=== PATIENT | female | born 1960 | race Caucasian/White ===

== ENCOUNTER 2021-03-06 16:31 | Outpatient (CLI) | payer BC, SELFPAY ==
[2021-03-06 17:03] LABS: Basophils % 0.4 %; Eosinophils # 0.1 10^3/uL (0.0-0.8); Eosinophils % 1.4 %; Hematocrit 40.8 % (37.0-47.0); Hemoglobin 13.7 g/dL (11.5-15.3); Lymphocytes % 39.7 %; Mean Corpuscular HGB Conc 33.6 g/dL (30.0-36.0); Mean Corpuscular Hemoglobin 28.4 pg (28.0-34.0); Mean Corpuscular Volume 84.6 fl (81-99); Mean Platelet Volume 10.2 fL (7.4-10.4); Monocytes # 0.5 10^3/uL (0.2-0.9); Neutrophils # 2.45 10^3/uL (1.8-7.7); Neutrophils % 49.1 %; Nucleated Red Blood Cells % 0 %; Platelet Count 228 10^3/cmm (130-400); Red Blood Count 4.82 10^6/uL (4.1-5.3); Red Cell Distribution Width 13.4 % (12.1-15.1)
[2021-03-06 17:44] LABS: Alanine Aminotransferase 18 U/L (0-33); Albumin Level 4.1 g/dL (3.5-5.2); Alkaline Phosphatase 67 IU/L (35-105); Aspartate Amino Transferase 22 U/L (0-32); Blood Urea Nitrogen 12 mg/dL (8-23); Calcium 8.7 mg/dL (8.5-10.5); Carbon Dioxide 25 mmol/L (22-29); Chloride 103 mmol/L (98-107); Chol HDL Ratio 4.72 mg/dL (0.0-4.40); Cholesterol 184 mg/dL (0-200); Globulin 2.8 g/dL (1.3-4.6); Glomerular Filtration Rate 84.8 mL/min (90-130); Glucose 89 mg/dL (65-115); HDL Cholesterol 39 mg/dL (60-100); LDL Cholesterol Calculated 106 mg/dL (50-129); LDL HDL Ratio 2.72 RATIO (0.00-3.22); Osmolality Calculated 283 mOsm/kg (285-295); Sodium 137 mmol/L (136-145); Thyroid Stimulating Hormone 1.74 uIU/mL (0.27-4.20); Total Bilirubin 0.3 mg/dL (0.15-1.2); Total Protein 6.9 g/dL (6.6-8.7); Triglycerides 194 mg/dL (0-150)
[2021-03-06 18:07] LABS: Free T4 Free Thyroxine 0.98 ng/dL (0.82-1.77)
[2021-03-06 21:56] LABS: Estmated Average Glucose 111; Hemoglobin A1C 5.5 % (4.0-6.0)
== END 2021-03-06 16:32 | disposition home or self-care (01) ==
LOC: LAB 16:34
PROVIDERS: Visit Provider Internal Medicine
DX: R73.03 Prediabetes (principal); I10 Essential (primary) hypertension; E78.5 Hyperlipidemia, unspecified; R53.83 Other fatigue
CPT/HCPCS: 80053; 80061; 83036; 84439; 84443; 85025

== ENCOUNTER 2022-11-17 12:25 | Outpatient (CLI) | payer BC, SELFPAY ==
--- NOTE | 2022-11-17 12:36 | XRR_ITS ---
PROCEDURE INFORMATION: Exam: XR Left Foot Exam date and time: 11/17/2022 12:56 PM Age: 62 years old Clinical indication: Injury or trauma; Other: Kicked weight; Blunt trauma; Foot; Left; Injury date: 11/13/22; Additional info: Toe pain left TECHNIQUE: Imaging protocol: Radiologic exam of the left foot. Views: 3 or more views. COMPARISON: No relevant prior studies available. FINDINGS: Bones/joints: Negative for acute bony abnormality. Soft tissues: Unremarkable XR/XR foot LT min 3V* [id number] IMPRESSION: No acute findings.
== END 2022-11-17 12:26 | disposition home or self-care (01) ==
PROVIDERS: PCP Family Medicine; Visit Provider Family Medicine
DX: M79.675 Pain in left toe(s) (principal)
CPT/HCPCS: 73630

== ENCOUNTER 2023-08-10 20:52 | Emergency (ER) | payer BC, SELFPAY ==
[2023-08-10 20:55] VITALS: BP 168/81; PULSE 65; RESP 16; TEMP 36.7; O2SAT 98
--- NOTE | 2023-08-10 21:07 | XRR_ITS ---
PROCEDURE INFORMATION: Exam: XR Chest Exam date and time: 08/10/2023 9:22 PM Age: 63 years old Clinical indication: Chest wall pain; Additional info: Chest pain TECHNIQUE: Imaging protocol: Radiologic exam of the chest. Views: 1 view. COMPARISON: No relevant prior studies available. FINDINGS: Tubes, catheters and devices: Overlying monitor leads noted. Lungs: Unremarkable. No consolidation. Pleural spaces: Unremarkable. No pleural effusion. No pneumothorax. Heart/Mediastinum: Unremarkable. No cardiomegaly. Bones/joints: Visualized osseous structures show no acute abnormality. XR/XR chest 1V portable [id number] IMPRESSION: No acute cardiopulmonary abnormality.
--- NOTE | 2023-08-10 21:07 | ECG_ITS ---
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 Measurements Intervals [place] Rate: 64 P: 53 MN: 205 QRS: 39 QRSD: 92 T: 47 QT: 398 QTc: 411 Interpretive Statements SINUS RHYTHM No previous ECG available for comparison Electronically Signed On 08-13-2023 23:21:08 LAST DIPPER by Gary Fisher M.D. [id number]
--- NOTE | 2023-08-10 21:20 | ED_ITS ---
HPI - Chest Pain 2 General: Chief Complaint: Chest Pain Stated Complaint: cp Time Seen by Provider: 08/10/23 21:15 History of Present Illness: Patient presents to the ER with complaints of epigastric pain and left-sided chest shoulder pain that radiated to her shoulder blade. The started about 845 tonight. Patient has had these pains once before. Patient did vomit once while driving to the ER and said she got cold and clammy prior to arrival. Patient thought her blood sugar may have been low so she ate some tuna cookies and milk but this did not seem to help much. Patient has high blood pressure and no other cardiac issues such as stent CO CHF etc. Patient is on lisinopril for blood pressure. Patient has no known allergies. Review of Systems 2 General: Reports: 10 or more systems reviewed and unremarkable except in HPI and below Physical Exam 2 Const: COMMON NORMALS: no acute distress, average body habitus, patient oriented x3, no limitations, healthy appearing, alert and well nourished HENMT: COMMON NORMALS: normocephalic, atraumatic, hearing grossly normal bilaterally, external ears normal, Normal external nose present, moist oral mucous membranes and oropharynx normal HEAD & SCALP: normocephalic and atraumatic NOSE: Normal external nose present EXTERNAL EAR: Yes external ears normal Neck/C-Spine: COMMON NORMALS: full ROM, no lymphadenopathy, supple, no meningeal signs, no JVD and Thyroid normal THYROID: Thyroid normal Chest: COMMONS NORMALS: normal inspection of the chest and normal palpation of entire chest wall Resp: COMMON NORMALS: normal respiratory effort, No retractions, No use of accessory muscles and clear to auscultation bilaterally AUSCULTATION: clear to auscultation bilaterally Cardio: COMMON NORMALS: no JVD, regular rate, regular rhythm, S1 normal heart sound present, S2 normal heart sound present, No gallops present (Cardio), No clicks present (Cardio), No murmurs present (Cardio) and No rub (Cardio) R ATE: regular rate RHYTHM: regular rhythm HEART SOUNDS: S1 normal heart sound present and S2 normal heart sound present GI: COMMON NORMALS: Normal to inspection, nondistended, normoactive bowel sounds present, Soft to palpation, No hepatosplenomegaly present, no masses and no bruits; negative for non-tender (Tender to palpate over epigastric region which reproduces pain) PALPATION: Yes Soft to palpation and Yes No hepatosplenomegaly present Neuro: COMMON NORMALS: patient oriented x3 SENSORIUM/ORIENTATION: Yes alert MENINGEAL SIGNS: Yes no meningeal signs Course 2 Vital Signs: Vital signs: Vital Signs Temperature 98.0 F 08/10/23 20:55 Pulse Rate 68 08/10/23 23:00 Respiratory Rate 16 08/10/23 23:49 Blood Pressure 112/78 08/10/23 23:49 Pulse Oximetry 98 08/10/23 20:55 Oxygen Delivery Me thod Room Air 08/10/23 20:55 MDM - Chest Pain Medical Decision Making Patient was worked up in a standard chest pain fashion with serial EKGs, serial enzymes, chest x-ray, all of which was essentially benign and did not show acute cardiac cause of her chest pain. Patient declined the GI cocktail because all of her pain went away. Patient be discharged home and should follow-up with her PCP for further evaluation and treatment. Differential Diagnosis Unlikely acute massive pulmonary embolism, acute respiratory failure, acute myocardial infarction, cardiac arrest or sudden cardiac Medical Records I reviewed the patient's medical records. Lab Data I reviewed the patient's lab results. 08/10/23 21:24 08/10/23 21:24 Radiology Impressions Chest X-Ray 08/10/23 21:07 IMPRESSION: No acute cardiopulmonary abnormality. Laboratory Results WBC 5.33 10^3/uL (3.29-11.43) 08/10/23 21: RBC 4.58 10^6/uL (3.85-5.65) 08/10/23: Hgb 13.30 g/dL (11.27-16.99) 08/10/23 21: Hct 38.7 % (36-47) 08/10/23 21: MCV 84.5 fl (85-98) L 08/10/23: MCH 29.0 pg (27-33) 08/10/23: MCHC 34.4 g/dL (30-55) 08/10/23 21: RDW 13.2 % (12.1-15.1) 08/10/23: Plt Count 200 10^3/cmm (157-399) 08/10/23 21: MPV 9.9 fL (7.4-10.4) 08/10/23 21: Neut % (Auto) 45.3 % 08/10/23 21: Lymph % (Auto) 44.5 % 08/10/23 21: Hendry % (Auto) 8.1 % 08/10/23 21: Eos % (Auto) 1.1 % 08/10/23 21: Baso % (Auto) 0.4 % 08/10/23 21: Neut # (Auto) 2.42 10^3/uL (1.8-7.7) 08/10/23 21: Lymph # (Auto) 2.4 10^3/uL (0.8-4.8) 08/10/23: Hendry # (Auto) 0.4 10^3/uL (0.2-0.9) 08/10/23: Eos # (Auto) 0.1 10^3/uL (0.0-0.8) 08/10/23: Baso # (Auto) 0.0 10^3/uL (0.0-0.1) 08/10/23: Nucleated RBC % (auto) 0 % 08/10/23: Nucleated RBCs # 0.0 /100WBC 08/10/23 21: Sodium 139 mmol/L (136-145) 08/10/23 21: Potassium 3.7 mmol/L (3.5-5.1) 08/10/23: Chloride 105 mmol/L (98-107) 08/10/23: Carbon Dioxide 22 mmol/L (22-29) 08/10/23 21:24 Anion Gap 15.7 (5-19) 08/10/23 21:24 BUN 17 mg/dL (8-23) 08/10/23 21: Creatinine 0.7 mg/dL (0.5-0.9) 08/10/23 21: GFR Calculation 84.0 mL/min (90-130) L 08/10/23 21: Glucose 115 mg/dL (65-115) 08/10/23: Calculated Osmolality 290 mOsm/kg (285-295) 08/10/23: Calcium 8.9 mg/dL (8.5-10.5) 08/10/23 21:24 Total Bilirubin 0.3 mg/dL (0.15-1.2) 08/10/23 21:24 AST 50 U/L (0-32) H 08/10/23 21:24 ALT 26 U/L (0-33) 08/10/23 21:24 Alkaline Phosphatase 71 U/L (35-105) 08/10/23 21:24 Troponin T Baseline < 6 ng/L (0-10) 08/10/23 21:24 Troponin T 120 Minute 6.00 ng/L (0-10) 08/10/23 23:06 Delta Troponin T 0.65441 ABS# (0-10) 08/10/23 23:06 Total Protein 6.6 g/dL (6.6-8.7) 08/10/23 21: Albumin 3.9 g/dL (3.5-5.2) 08/10/23 21:24 Globulin 2.7 g/dL (1.3-4.6) 08/10/23 21: Lipase 65 U/L (13-60) H 08/10/23 21:24 All radiology interpretation(s) finalized by discharge EKG Data EKG 1: I personally reviewed and interpreted this EKG as follows: EKG interpretation date: 08/10/23 EKG interpretation time: 20:58 Prior EKG tracings: not available for review Interpretation: EKG showed ventricular rate 64 beats minute, WV interval 205, QRS duration 92, QTc of 407, sinus rhythm with no ST-T wave changes Discharge Plan Discharge Patient Disposition: Home Clinical Impression: Atypical chest pain Condition: Stable Discharge Orders: Discharge ED (Routine); Ordered 08/10/23 Ordered By: Chencho Odonnell Referrals: Simona Kwok DO [Primary Care Provider] - Patient Instructions: Chest Pain - Noncardiac Activity Restrictions/Additional Instructions: Your evaluation in the ER did not provide any cardiac reasoning for your chest pain. It is thought to be noncardiac in nature. Please follow-up with your family practice physician in the next 7 to 10 days for further evaluation and treatment as needed. If your chest pain returns or worsens please feel free to return to the ER. Coding Level of Care Code ED [employer] for Stacie Ulloa
[2023-08-10 21:32] LABS: Basophils % 0.4 %; Eosinophils # 0.1 10^3/uL (0.0-0.8); Eosinophils % 1.1 %; Hematocrit 38.7 % (36-47); Lymphocytes # 2.4 10^3/uL (0.8-4.8); Lymphocytes % 44.5 %; Mean Corpuscular HGB Conc 34.4 g/dL (30-55); Mean Corpuscular Volume 84.5 fl (85-98); Mean Platelet Volume 9.9 fL (7.4-10.4); Monocytes # 0.4 10^3/uL (0.2-0.9); Monocytes % 8.1 %; Neutrophils # 2.42 10^3/uL (1.8-7.7); Neutrophils % 45.3 %; Nucleated Red Blood Cells % 0 %; Platelet Count 200 10^3/cmm (157-399); Red Blood Count 4.58 10^6/uL (3.85-5.65); Red Cell Distribution Width 13.2 % (12.1-15.1); White Blood Count 5.33 10^3/uL (3.29-11.43)
[2023-08-10 22:00] LABS: Troponin(5th) Baseline < 6 ng/L (0-10)
[2023-08-10 22:01] LABS: Alanine Aminotransferase 26 U/L (0-33); Albumin Level 3.9 g/dL (3.5-5.2); Alkaline Phosphatase 71 U/L (35-105); Anion Gap 15.7 (5-19); Aspartate Amino Transferase 50 U/L (0-32); Blood Urea Nitrogen 17 mg/dL (8-23); Calcium 8.9 mg/dL (8.5-10.5); Carbon Dioxide 22 mmol/L (22-29); Chloride 105 mmol/L (98-107); Globulin 2.7 g/dL (1.3-4.6); Glucose 115 mg/dL (65-115); Lipase 65 U/L (13-60); Osmolality Calculated 290 mOsm/kg (285-295); Potassium 3.7 mmol/L (3.5-5.1); Sodium 139 mmol/L (136-145); Total Bilirubin 0.3 mg/dL (0.15-1.2); Total Protein 6.6 g/dL (6.6-8.7)
[2023-08-10 22:03] VITALS: BP 131/77; PULSE 70; RESP 17
[2023-08-10 23:00] VITALS: BP 115/72; PULSE 68; RESP 16
--- NOTE | 2023-08-10 23:07 | ECG_ITS ---
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 Measurements Intervals [place] Rate: 63 P: 31 HI: 126 QRS: 35 QRSD: 107 T: 40 QT: 382 QTc: 394 Interpretive Statements SINUS RHYTHM POSSIBLE INFERIOR MYOCARDIAL INFARCTION , OF INDETERMINATE AGE [30 ms Q WAVE IN II/aVF] Compared to ECG 08/10/2023 20:58:59 Myocardial infarct finding now present Electronically Signed On 08-14-2023 11:00:48 BARTENDER by Gary Fisher M.D. [id number]
[2023-08-10 23:29] LABS: Troponin 5 2HR Delta 0.00001 ABS# (0-10)
[2023-08-10 23:49] VITALS: BP 112/78; RESP 16
== END 2023-08-10 23:51 | disposition home or self-care (01) ==
PROVIDERS: Emergency Provider Emergency Medicine; PCP Family Medicine
DX: R07.89 Other chest pain (principal)
CPT/HCPCS: 71045; 80053; 83690; 84484; 85025; 93005; 99285

== ENCOUNTER 2023-08-26 09:39 | Outpatient (CLI) | payer BC, SELFPAY ==
--- NOTE | 2023-08-26 09:47 | US_ITS ---
WS: [id number] RIGHT UPPER QUADRANT ULTRASOUND HISTORY: ABDOMINAL PAIN COMPARISON: None available. Quality this examination is compromised by body habitus. Liver: 14.3 cm in length. Normal size liver with mild hepatic steatosis throughout. No mass. Portal Vein: Normal hepatopetal flow with monophasic waveform. Gallbladder: Nondistended gallbladder with a large stone in the lumen. Stone measures 2.6 cm maximum diameter. There is no pericholecystic fluid. CBD: 0.3 cm Pancreas: Only partially visualized. Right kidney: 9.2 cm in length. Normal size and echogenicity. No hydronephrosis or mass. Aorta and IVC: Unremarkable abdominal aorta and IVC. No ascites. IMPRESSION: 1. Cholelithiasis without acute cholecystitis. Very large stone in the gallbladder lumen. Consider e valuation by surgery. 2. Mild hepatic steatosis.
== END 2023-08-26 09:40 | disposition home or self-care (01) ==
LOC: RAD 09:41
PROVIDERS: PCP Family Medicine; Visit Provider Family Medicine
DX: K80.20 Calculus of gallbladder without cholecystitis without obstruction (principal); K76.0 Fatty (change of) liver, not elsewhere classified
CPT/HCPCS: 76705